=== PATIENT | female | born 1940 ===

== ENCOUNTER 2025-04-08 06:10 | Day surgery (SDC) | payer OTHER ==
[2025-04-06 10:59] VITALS: BP 170/78
[~2025-04-08] VITALS: Ht 157.5 cm; Wt 86.2 kg
[~2025-04-08 06:10] MED LIST: IRBESARTAN-HCT1 EAC1 PO
[2025-04-08] MEDS ORDERED: POVIDONE-IODINE 118 ML BOTT TOP ONE (14:45)
[2025-04-08] MEDS ORDERED: HEMOSTATIC MATRIX 1 KIT KIT TOP ONE (14:45)
[2025-04-08] MEDS ORDERED: BUPIVACAINE HCL 30 ML VIAL IV ONE (14:45)
[2025-04-08] MEDS ORDERED: LIDOCAINE HCL 1%/EPINEPHRINE 20ML VIAL IJ ONE (14:45)
[2025-04-08] MEDS ORDERED: DIBUCAINE 30 GM TUBE RECTAL ONE (14:45)
[2025-04-08] MEDS ORDERED: METRONIDAZOLE/SODIUM CHLORIDE 500 MG/100 ML PIGGYBACK IV ONE (14:45)
[2025-04-08] MEDS ORDERED: CEFTRIAXONE SODIUM 2,000 MG VIAL IV ONE (14:45)
[2025-04-08] MEDS ORDERED: ENALAPRILAT DIHYDRATE 1.25 MG/ML VIAL IV ONE ×2 (15:30→16:30)
== END 2025-04-08 18:40 | disposition home or self-care (01) ==
LOC: CIR.AMB 06:10
PROVIDERS: ATTEND Colon & Rectal Surgery
DX: K64.2 Third degree hemorrhoids (principal); K64.4 Residual hemorrhoidal skin tags